=== PATIENT | female | born 1990 | race Two or more races ===

== ENCOUNTER 2017-09-13 23:55 | Outpatient (CLI) | payer BC, OTHER ==
[2017-09-14 01:46] LABS: RUPTURE FETAL MEMBRANES NEGATIVE (NEGATIVE)
[2017-09-14 02:29] LABS: ADD MAN DIFF? NO
[2017-09-14 02:31] LABS: WHITE BLOOD COUNT 6.8 10^3/ul (4.8-10.8)
[2017-09-14 02:31] LABS: BASOPHILS % 0.1 % (0.0-2.0); EOSINOPHILS % 0.4 % (0.0-7.0); HEMATOCRIT 29.4 % (37.0-47.0); HEMOGLOBIN 9.6 g/dl (12.0-16.0); LYMPHOCYTES # 1.8 10^3/ul (0.8-2.9); LYMPHOCYTES % 26.5 % (15.0-51.0); MEAN CORPUSCULAR HEMOGLOBIN 28.3 pg (29.0-33.0); MEAN CORPUSCULAR HGB CONC 32.7 g/dl (32.0-37.0); MEAN CORPUSCULAR VOLUME 86.7 fl (82.0-101.0); MEAN PLATELET VOLUME 11.8 fl (7.4-10.4); MONOCYTE # 0.4 10^3/ul (0.3-0.9); MONOCYTES % 5.8 % (0.0-11.0); NEUTROPHIL # 4.5 10^3/ul (1.6-7.5); NEUTROPHILS % 66.9 % (39.0-77.0); PLATELET COUNT 136 10^3/UL (140-415); RED BLOOD COUNT 3.39 10^6/ul (4.20-5.40); RED CELL DISTRIBUTION WIDTH 14.4 % (11.5-14.5)
[2017-09-14 03:58] LABS: ADD UMIC NO; UR ASCORBIC ACID NEGATIVE (NEGATIVE); UR BACTERIA FEW /HPF (NONE SEEN); UR BILIRUBIN (Dip) NEGATIVE (NEGATIVE); UR BLOOD (Dip) NEGATIVE (NEGATIVE); UR CLARITY SLIGHTLY CLOUDY (CLEAR); UR COLOR YELLOW (YELLOW); UR GLUCOSE (Dip) NEGATIVE (NEGATIVE); UR KETONES (Dip) NEGATIVE (NEGATIVE); UR LEUKOCYTE ESTERASE (Dip) NEGATIVE Leu/ul (NEGATIVE); UR NITRITE (Dip) NEGATIVE (NEGATIVE); UR RBC 1 /HPF (0-5); UR SPECIFIC GRAVITY (Dip) 1.015 (1.003-1.030); UR SQUAMOUS EPITHELIAL CELL FEW /HPF (FEW); UR TOTAL PROTEIN (Dip) NEGATIVE (NEGATIVE); UR UROBILINOGEN (Dip) NEGATIVE (NEGATIVE); UR WBC 4 /HPF (0-5)
== END 2017-09-14 04:18 | disposition home or self-care (01) ==
LOC: OBT 23:55 → L-D 23:56 → OBT 09-14 04:18
DX: O60.03 Preterm labor without delivery, third trimester (principal); Z3A.29 29 weeks gestation of pregnancy
CPT/HCPCS: 36415; 76815; 76817; 76818; 81001; 81003; 84112; 85025

== ENCOUNTER 2017-11-19 16:06 | Outpatient (CLI) | payer BC, OTHER | END 2017-11-19 17:10 | disposition home or self-care (01) | LOC: OBT 16:06 → L-D 16:06 → OBT 17:10 | DX: O26.893 Other specified pregnancy related conditions, third trimester (principal); Z3A.38 38 weeks gestation of pregnancy; R10.2 Pelvic and perineal pain | CPT/HCPCS: 76818 ==

== ENCOUNTER 2017-11-24 09:59 | Inpatient (IN) | payer BC ==
[2017-11-24 11:28] LABS: ADD MAN DIFF? NO
[2017-11-24] MEDS ORDERED: OXYCODONE/ACETAMINOPHEN (5/325) TAB PO ×3 (11:30→20:00)
[2017-11-24] MEDS ORDERED: IBUPROFEN 600 MG TAB PO (11:30)
[2017-11-24] MEDS ORDERED: BUTORPHANOL 2 MG INJ IV (11:30)
[2017-11-24] MEDS: DINOPROSTONE 10 MG VAG SUPP VAG (11:30)
[2017-11-24] MEDS ORDERED: CARBOPROST 250 MCG INJ IM ×2 (11:30→23:30)
[2017-11-24] MEDS ORDERED: OXYTOCIN 30 UNITS/LR 500 ML IV ×3 (11:30→23:30)
[2017-11-24] MEDS ORDERED: LIDOCAINE 1% (MPF) 30 ML INJ INJ (11:30)
[2017-11-24] MEDS ORDERED: MISOPROSTOL 200 MCG TAB PR ×2 (11:30→23:30)
[2017-11-24] MEDS ORDERED: METHYLERGONOVINE 0.2 MG INJ IM ×2 (11:30→23:30)
[2017-11-24 11:32] LABS: ABNORMAL IP MESSAGE 1; EOSINOPHILS # 0.1 10^3/ul (0.0-0.5); EOSINOPHILS % 0.8 % (0.0-7.0); HEMATOCRIT 35.7 % (37.0-47.0); HEMOGLOBIN 11.8 g/dl (12.0-16.0); LYMPHOCYTES # 1.6 10^3/ul (0.8-2.9); LYMPHOCYTES % 24.8 % (15.0-51.0); MEAN CORPUSCULAR HEMOGLOBIN 28.9 pg (29.0-33.0); MEAN CORPUSCULAR HGB CONC 33.1 g/dl (32.0-37.0); MEAN CORPUSCULAR VOLUME 87.3 fl (82.0-101.0); MEAN PLATELET VOLUME 13.4 fl (7.4-10.4); MONOCYTE # 0.3 10^3/ul (0.3-0.9); MONOCYTES % 5.1 % (0.0-11.0); NEUTROPHIL # 4.4 10^3/ul (1.6-7.5); PLATELET COUNT 125 10^3/UL (140-415); RED BLOOD COUNT 4.09 10^6/ul (4.20-5.40); RED CELL DISTRIBUTION WIDTH 14.9 % (11.5-14.5)
[2017-11-24 11:32] LABS: WHITE BLOOD COUNT 6.3 10^3/ul (4.8-10.8)
[2017-11-24 11:45] LABS: POSITIVE DIFF @See below
[2017-11-24] MEDS: LACTATED RINGER'S 1,000 ML IV* ×2 (11:51→16:25)
[2017-11-24 11:57] LABS: INR 0.84; PROTIME 11.6 Sec (11.9-14.9); PT RATIO 0.9
[2017-11-24 11:58] LABS: PARTIAL THROMBOPLASTIN TIME 27.3 Sec (23.0-35.0)
[2017-11-24] MEDS ORDERED: metFORMIN 500 MG TAB PO (12:00)
[2017-11-24 12:28] LABS: HEPATITIS B SURFACE ANTIGEN NEGATIVE (NEGATIVE)
[2017-11-24] MEDS: CEFAZOLIN 2 GM/50 ML (PMX) 50 ML IV (16:00)
[2017-11-24 16:46] LABS: RAPID PLASMA REAGIN NONREACTIVE (NR)
[2017-11-24] MEDS ORDERED: ACCU-CHEK XX (17:05)
[2017-11-24] MEDS ORDERED: FENTAnyl 50 MCG/ML VIAL (18:43)
[2017-11-24] MEDS ORDERED: METOCLOPRAMIDE 10 MG INJ (18:43)
[2017-11-24] MEDS ORDERED: morphine SULFATE/PF (10 MG/10 ML) INJ (18:43)
[2017-11-24] MEDS: CITRIC ACID/NA CITRATE 30 ML CUP PO (18:44)
[2017-11-24] MEDS ORDERED: BUPIVACAINE 0.75%/DEXT (SPINAL) 2 ML INJ (18:44)
[2017-11-24] MEDS ORDERED: PHENYLephrine (100 MCG/ML) 5ML SYG (18:44)
[2017-11-24] MEDS ORDERED: OXYTOCIN 10 UNIT INJ (18:44)
[2017-11-24] MEDS: ONDANSETRON 4 MG INJ IV (18:44)
[2017-11-24] MEDS ORDERED: EPHEDrine SULFATE 50 MG/5 ML SYG IV (20:00)
[2017-11-24] MEDS ORDERED: IPRATROPIUM (NEB) 0.5 MG/2.5 ML AMP HHN (20:00)
[2017-11-24] MEDS ORDERED: ALBUTEROL 0.083% (NEB) 2.5 MG/3 ML AMP HHN (20:00)
[2017-11-24] MEDS ORDERED: MEPERIDINE 25 MG INJ IV (20:00)
[2017-11-24] MEDS ORDERED: ONDANSETRON 4 MG INJ IV ×2 (20:00)
[2017-11-24] MEDS ORDERED: morphine 2 MG INJ IV ×2 (20:00)
[2017-11-24] MEDS ORDERED: hydrALAzine 20 MG INJ IV (20:00)
[2017-11-24] MEDS ORDERED: DIPHENHYDRAMINE 50 MG INJ IV ×2 (20:00)
[2017-11-24] MEDS ORDERED: FENTAnyl 50 MCG/ML VIAL IV ×3 (20:00)
[2017-11-24] MEDS ORDERED: HYDROmorphONE 1 MG/5 ML IV SYRINGE IV ×3 (20:00)
[2017-11-24] MEDS ORDERED: LABETALOL HCL 20MG INJ IV (20:00)
[2017-11-24] MEDS ORDERED: TRIMETHOBENZAMIDE 100 MG/ML VIAL IM ×2 (20:00)
[2017-11-24] MEDS ORDERED: NALOXONE (0.4 MG/ML) INJ IV (20:00)
[2017-11-24] MEDS ORDERED: NALBUPHINE HCL (10 MG/1 ML) INJ IV (20:00)
[2017-11-24] MEDS: OXYTOCIN 30 UNITS/LR 500 ML IV (22:31)
[2017-11-24] MEDS: AZITHROMYCIN 500MG/NS (PMX) 250 ML IVPB (22:41)
[2017-11-24] MEDS: KETOROLAC 30 MG INJ IV (23:13)
[2017-11-24] MEDS ORDERED: NA PHOSPHATE/BIPHOS 133 ML ENEMA PR (23:30)
[2017-11-24] MEDS ORDERED: LANOLIN 7 GM TUBE TOP (23:30)
[2017-11-25] MEDS: CEFAZOLIN 2 GM/50 ML (PMX) 50 ML IV ×3 (03:36→18:08)
[2017-11-25] MEDS: LACTATED RINGER'S 1,000 ML IV ×4 (03:40→23:30)
[2017-11-25] MEDS: CLINDAMYCIN 300 MG CAP PO ×4 (06:09→18:08)
[2017-11-25] MEDS: ACCU-CHEK XX ×5 (07:30→20:05)
[2017-11-25 08:29] LABS: ADD MAN DIFF? NO
[2017-11-25 08:30] LABS: WHITE BLOOD COUNT 7.5 10^3/ul (4.8-10.8)
[2017-11-25 08:30] LABS: ABNORMAL IP MESSAGE 1; BASOPHILS % 0.1 % (0.0-2.0); EOSINOPHILS # 0.1 10^3/ul (0.0-0.5); EOSINOPHILS % 0.7 % (0.0-7.0); HEMATOCRIT 29.1 % (37.0-47.0); HEMOGLOBIN 9.7 g/dl (12.0-16.0); LYMPHOCYTES # 1.3 10^3/ul (0.8-2.9); LYMPHOCYTES % 17.7 % (15.0-51.0); MEAN CORPUSCULAR HEMOGLOBIN 29.2 pg (29.0-33.0); MEAN CORPUSCULAR HGB CONC 33.3 g/dl (32.0-37.0); MEAN CORPUSCULAR VOLUME 87.7 fl (82.0-101.0); MEAN PLATELET VOLUME 12.4 fl (7.4-10.4); MONOCYTE # 0.4 10^3/ul (0.3-0.9); MONOCYTES % 5.8 % (0.0-11.0); NEUTROPHIL # 5.7 10^3/ul (1.6-7.5); NEUTROPHILS % 75.3 % (39.0-77.0); PLATELET COUNT 90 10^3/UL (140-415); RED BLOOD COUNT 3.32 10^6/ul (4.20-5.40)
[2017-11-25] MEDS ORDERED: KETAMINE (100 MG/ML) 5 ML VIAL (08:36)
[2017-11-25 08:41] LABS: POSITIVE DIFF @See below
[2017-11-25] MEDS: BISACODYL 10 MG SUPP PR (10:30)
[2017-11-25] MEDS: SENNA/DOCUSATE NA (8.6MG/50MG) TAB PO ×2 (10:48→21:00)
[2017-11-25] MEDS: KETOROLAC 30 MG INJ IV ×2 (10:49→16:37)
[2017-11-25] MEDS: HYDROCODONE/APAP (5/325) TAB PO (18:08)
[2017-11-25] MEDS: IBUPROFEN 800 MG TAB PO (21:54)
[2017-11-26] MEDS: CLINDAMYCIN 300 MG CAP PO ×5 (00:12→23:54)
[2017-11-26] MEDS: HYDROCODONE/APAP (5/325) TAB PO (00:17)
[2017-11-26] MEDS: IBUPROFEN 800 MG TAB PO ×3 (05:54→21:48)
[2017-11-26] MEDS: ACCU-CHEK XX ×4 (08:05→20:27)
[2017-11-26] MEDS: SENNA/DOCUSATE NA (8.6MG/50MG) TAB PO ×2 (09:30→21:48)
[2017-11-26] MEDS: OXYCODONE/ACETAMINOPHEN (5/325) TAB PO ×2 (09:57→18:51)
[2017-11-26] MEDS: CLOTRIMAZOLE 1% 30 GM CR TOP (23:55)
[2017-11-26] MEDS: DIPHENHYDRAMINE 1%/ZINC 28.3 GM CR TOP (23:55)
[2017-11-27] MEDS: OXYCODONE/ACETAMINOPHEN (5/325) TAB PO (04:26)
[2017-11-27] MEDS: CLINDAMYCIN 300 MG CAP PO ×2 (05:49→12:20)
[2017-11-27] MEDS: IBUPROFEN 800 MG TAB PO (05:49)
[2017-11-27] MEDS: SENNA/DOCUSATE NA (8.6MG/50MG) TAB PO (08:39)
[2017-11-27] MEDS: DIPHENHYDRAMINE 1%/ZINC 28.3 GM CR TOP (08:39)
[2017-11-27] MEDS: CLOTRIMAZOLE 1% 30 GM CR TOP (08:39)
[2017-11-27] MEDS: DIPHTH/TET/ACEL PERTUSS (ADULT) 0.5 ML VIAL IM* (09:00)
[2017-11-27] MEDS: MEASLES,MUMPS,RUBELLA VACCINE INJ SC* (09:00)
== END 2017-11-27 13:55 | disposition home or self-care (01) | DRG 788 ==
LOC: L-D 09:59 → PP1 23:24
PROVIDERS: Obstetrics & Gynecology
PROC: 10D00Z1 Extraction of Products of Conception, Low, Open Approach (ICD-10-PCS; principal; 2017-11-24 10:00)
PROC: 4A1HXCZ Monitoring of Products of Conception, Cardiac Rate, External Approach (ICD-10-PCS; 2017-11-24 10:00)
DX: O24.425 Gestational diabetes mellitus in childbirth, controlled by oral hypoglycemic drugs (principal); O69.81X0 Labor and delivery complicated by cord around neck, without compression, not applicable or unspecified; Z3A.39 39 weeks gestation of pregnancy; Z37.0 Single live birth
CPT/HCPCS: 76815; 82962; 85025; 85610; 85730; 86592; 86850; 86900; 86901; 87340; 99464

== ENCOUNTER 2017-11-28 17:46 | Emergency (ER) | payer BC ==
[2017-11-28] MEDS: morphine 4 MG/ML VIAL IV (18:19)
[2017-11-28] MEDS: SOD CHLORIDE 0.9% 1,000 ML IV ×2 (18:19)
[2017-11-28] MEDS: ONDANSETRON 4 MG INJ IV (18:19)
[2017-11-28 18:25] LABS: ADD MAN DIFF? NO
[2017-11-28 18:43] LABS: BASOPHILS % 0.1 % (0.0-2.0); EOSINOPHILS # 0.1 10^3/ul (0.0-0.5); EOSINOPHILS % 0.9 % (0.0-7.0); HEMATOCRIT 31.7 % (37.0-47.0); HEMOGLOBIN 10.3 g/dl (12.0-16.0); LYMPHOCYTES # 1.2 10^3/ul (0.8-2.9); LYMPHOCYTES % 16.7 % (15.0-51.0); MEAN CORPUSCULAR HGB CONC 32.5 g/dl (32.0-37.0); MEAN CORPUSCULAR VOLUME 89.3 fl (82.0-101.0); MEAN PLATELET VOLUME 12.1 fl (7.4-10.4); MONOCYTE # 0.3 10^3/ul (0.3-0.9); MONOCYTES % 4.3 % (0.0-11.0); NEUTROPHIL # 5.7 10^3/ul (1.6-7.5); NEUTROPHILS % 77.6 % (39.0-77.0); PLATELET COUNT 183 10^3/UL (140-415); RED BLOOD COUNT 3.55 10^6/ul (4.20-5.40); RED CELL DISTRIBUTION WIDTH 14.4 % (11.5-14.5)
[2017-11-28 18:43] LABS: WHITE BLOOD COUNT 7.4 10^3/ul (4.8-10.8)
[2017-11-28 19:09] LABS: ALANINE AMINOTRANSFERASE 32 IU/L (13-69); ALBUMIN 2.7 g/dl (3.3-4.9); ALKALINE PHOSPHATASE 106 IU/L (42-121); ANION GAP 12 (8-16); ASPARTATE AMINO TRANSFERASE 28 IU/L (15-46); BILIRUBIN,INDIRECT 0.3 mg/dl (0-1.1); BILIRUBIN,TOTAL 0.3 mg/dl (0.2-1.3); BLOOD UREA NITROGEN 6 mg/dl (7-20); CALCIUM 8.3 mg/dl (8.4-10.2); CARBON DIOXIDE 25 mmol/L (21-31); CHLORIDE 108 mmol/L (97-110); CREATININE 0.52 mg/dl (0.44-1.00); GLUCOSE 97 mg/dl (70-220); POTASSIUM 3.7 mmol/L (3.5-5.1); SODIUM 141 mmol/L (135-144); TOTAL PROTEIN 5.7 g/dl (6.1-8.1)
[2017-11-28 19:25] LABS: FREE T4 (FREE THYROXINE) 0.96 ng/dl (0.79-2.35)
[2017-11-28] MEDS: KETOROLAC 30 MG INJ IV (20:09)
== END 2017-11-28 20:45 | disposition home or self-care (01) ==
LOC: E/R 17:46
DX: O90.89 Other complications of the puerperium, not elsewhere classified (principal); M54.2 Cervicalgia; O90.81 Anemia of the puerperium; O72.1 Other immediate postpartum hemorrhage; R53.1 Weakness; R51 Headache; Z79.84 Long term (current) use of oral hypoglycemic drugs
CPT/HCPCS: 36415; 70450; 72125; 76856; 80053; 84439; 84443; 84702; 85025; 86850; 86900; 86901; 93005; 96374; 96375; 99285-25